=== PATIENT | female | born 1990 | race Caucasian/White ===

== ENCOUNTER → 2017-03-06 | Outpatient (CLI) | payer BC ==
[~2017-03-06] MED LIST: FAMOTIDINE 20 MG/2 ML VIAL IV ONE; Pre Op ABX Message 1 EACH MISC MISCELLANE ONE
[2017-03-06 10:40] LABS: CH 31.6; CHCM 33.5; HCT 35.9 % (34.0-46.0); HDW 2.55; MCH 31.6 pg (25.0-35.0); MCHC 33.4 g/dL (31.0-37.0); MCV 94.7 fL (80.0-100.0); Mean Platelet Volume 6.7; RBC 3.79 m/uL (3.80-5.40); RDW 13.5 % (11.5-15.5); WBC 13.4 k/uL (3.8-10.6)
== END | disposition home or self-care (01) ==
LOC: LABWHC1 09:04
PROVIDERS: ATTEND Obstetrics & Gynecology
DX: Z34.82 Encounter for supervision of other normal pregnancy, second trimester (principal); Z3A.00 Weeks of gestation of pregnancy not specified
CPT/HCPCS: 36415; 82950; 85027; 86850

== ENCOUNTER 2017-06-06 12:46 | Inpatient (IN) | payer BC, OTHER ==
[2017-06-06] MEDS ORDERED: METHYLERGONOVINE 0.2 MG/ML 1 ML AMP IM PRN (12:53)
[2017-06-06] MEDS ORDERED: LIDOCAINE 1% (PF) 10 MG/ML (30 ML SDV) SQ PRN (12:53)
[2017-06-06] MEDS ORDERED: CARBOPROST TROMETHAMINE 250 MCG/ML 1 ML AMP IM PRN (12:53)
[2017-06-06] MEDS ORDERED: TERBUTALINE 1 MG/ML VIAL SQ PRN (12:53)
[2017-06-06] MEDS ORDERED: OXYTOCIN 10 UNIT/ML 1 ML VIAL IM PRN (12:53)
[2017-06-06] MEDS ORDERED: OXYTOCIN 20 UNITS/1000 ML NS 1,000 ML IV SCH (13:00)
[2017-06-06] MEDS ORDERED: LACTATED RINGERS 1,000 ML IV SCH ×2 (13:00)
--- NOTE | 2017-06-06 13:00 | P.HPOB ---
History of Present Illness H&P Date: 06/06/17 Chief Complaint: Small for gestational age This patient is a pleasant 27-year-old 3 para 2 female estimated date of confinement 06/04/2017 estimated gestational age 40-2/7 weeks gestation was seen by Dr. Hernandez this morning and had a ultrasound for estimated weight amniotic fluid index due to postdates and estimated weight was 6 lbs. 7 oz. Although this is at the 19th percentile of Dr. Hernandez discussed the small size of this baby with the patient and she had a favorable cervix and she requested delivery at this time. She is care is per Dr. Hernandez and appears to be, complicated by late to seek care. She also is a tobacco user. She is 2 previous babies were small as well. Review of Systems Constitutional: Denies chills, Denies fever Ears, nose, mouth and throat: Denies headache, Denies sore throat Cardiovascular: Denies chest pain, Denies shortness of breath Respiratory: Denies cough Gastrointestinal: Reports heartburn Genitourinary: Reports Menstruation: Reports amenorrhea Musculoskeletal: Denies myalgias Integumentary: Denies pruritus, Denies rash Neurological: Denies numbness, Denies weakness Psychiatric: Denies anxiety, Denies depression Endocrine: Denies fatigue, Denies weight change Past Medical History Past Medical History: No Reported History History of Any Multi-Drug Resistant Organisms: None Reported Past Surgical History: No Surgical Hx Reported Additional Past Surgical History / Comment(s): Lipoma left shoulder blade Past Anesthesia/Blood Transfusion Reactions: No Reported Reaction Past Psychological History: Bipolar, Depression Smoking Status: Current every day smoker Past Alcohol Use History: None Reported Past Drug Use History: None Reported Medications and Allergies Home Medications Medication Instructions Recorded Confirmed Type Mxw-Tdqh-Lytlp Acid 1 tab PO DAILY 08/18/14 08/18/14 History [-U Capsule (formulary)] Allergies Allergy/AdvReac Type Severity Reaction Status Date / Time No Known Allergies Allergy Verified 08/18/14 08:08 Exam - Vital Signs Vital signs: Intake and Output 06/05/17 06/06/17 06/06/17 22:59 06:59 14:59 Other: Weight 66.224 kg Patient Weight 06/07/17 06:59 Weight 66.224 kg - OBG Physical Exam Abdomen: bowel sounds normal, no diffuse tenderness, no bruit present, no guarding noted, no hepatomegaly, no splenomegaly, no mass Vulva: both: normal Vagina: normal moisture, no discharge Cervix: Cervix is [address] Munoz. Uterus: enlarged (Fundal height in the office today was 37 cm.) Results blood work shows she is Rh- and she did receive RhoGAM, rubella immune , group B strep was negative, ultrasounds as above. Assessment and Plan (1) Third trimester Narrative/Plan: This is a pleasant 27-year-old 3 para 2 female 40-2/7 weeks gestation with a small for gestational age and favorable cervix with patient requesting induction of labor. Plan at this time is induction of labor and anticipate vaginal delivery. Status: Acute (2) Small for gestational age fetus Status: Acute (3) Rh negative status during Status: Acute
[2017-06-06 13:02] VITALS: BMI 29.5
[2017-06-06 13:09] LABS: Basophils % (A) 0 %; CH 30.1; CHCM 33.2; Eosinophils # (A) 0.2 k/uL (0-0.7); Eosinophils % (A) 1 %; HGB 12.4 gm/dL (11.4-16.0); Luc # (Auto) 0.22; Luc % (Auto) 1; Lymphocytes # (A) 1.9 k/uL (1.0-4.8); Lymphocytes % (A) 9 %; MCH 30.5 pg (25.0-35.0); MCHC 33.4 g/dL (31.0-37.0); MCV 91.2 fL (80.0-100.0); Mean Platelet Volume 7.4; Monocytes # (A) 0.5 k/uL (0-1.0); Monocytes % (A) 3 %; Neutrophils # (A) 17.6 k/uL (1.3-7.7); Neutrophils % (A) 86 %; RBC 4.06 m/uL (3.80-5.40); RDW 14.2 % (11.5-15.5); WBC 20.4 k/uL (3.8-10.6); WBC (Perox) 19.61
[2017-06-06] MEDS ORDERED: fentaNYL (PF) 50 MCG/ML 5 ML AMP ONE (13:49)
[2017-06-06] MEDS ORDERED: BUPIVACAINE (PF) 0.25% 30 ML VIAL ONE (13:49)
[2017-06-06] MEDS ORDERED: SODIUM CHLORIDE 0.9% 100 ML BAG ONE (13:49)
[2017-06-06] MEDS ORDERED: SIMETHICONE 80 MG CHEWABLE PO PRN (15:54)
[2017-06-06] MEDS ORDERED: ACETAMINOPHEN TAB 325 MG TAB PO PRN (15:54)
[2017-06-06] MEDS ORDERED: HYDROCORTISONE 2.5% RECTAL CREAM 30 GM TUBE RECTAL PRN (15:54)
[2017-06-06] MEDS ORDERED: LANOLIN CREAM 5 GM TUBE TOPICAL PRN (15:54)
[2017-06-06] MEDS ORDERED: BENZOCAINE/MENTHOL SPRAY 1 GM/SPRAY AEROSOL TOPICAL PRN (15:54)
[2017-06-06] MEDS ORDERED: WITCH HAZEL 1 EACH MED..PAD TOPICAL PRN (15:54)
[2017-06-06] MEDS ORDERED: diphenhydrAMINE 25 MG CAP PO PRN (15:54)
[2017-06-06] MEDS ORDERED: diphenhydrAMINE 50 MG/ML 1 ML VIAL IVP PRN (15:54)
[2017-06-06] MEDS ORDERED: IBUPROFEN 600 MG TAB PO PRN (15:54)
[2017-06-06] MEDS ORDERED: ZOLPIDEM 5 MG TAB PO PRN (15:54)
[2017-06-06] MEDS ORDERED: Acetaminophen-Codeine 300-30mg TAB PO PRN ×2 (15:54)
[2017-06-06] MEDS ORDERED: BISACODYL 10 MG SUPP RECTAL PRN (15:54)
[2017-06-06] MEDS ORDERED: Rhogam IMMUNE GLOBULIN 1,500 UNIT/1 ML IM ONE (15:54)
--- NOTE | 2017-06-06 16:53 | P.PROBDLV ---
Vaginal Delivery Note - . Vaginal Delivery Note: Normal spontaneous vaginal delivery of viable female infant Apgars 9 and 9 delivery time is 1529 hrs. Please see dictated H&P for intimate details of this patient's admission. Brief summary is a pleasant 27-year-old 3 para 2 female 40-2/7 weeks gestation admitted for induction secondary to small for gestational age favorable cervix. Patient is also brought to be in early labor. Patient is 5 cm dilators artificial rupture membranes for clear fluid patient does request an epidural at this time after the epidural is placed patient is then goes to complete quickly and pushes the head to the perineum. Posterior perineum is supported we have controlled delivery of infant's head over the intact perineum. Mouth and nares are bulb suctioned. There is no evidence of a nuchal cord. Gentle downward traction we have delivery the anterior and posterior shoulder and rest this infant's body. This is a vigorous viable female infant Apgars are 9 and 9 delivery time was 1529 hrs. After delivery of the infant the umbilical cords doubly clamped and cut. The trivascular. Cord blood is obtained for Rh status. Placenta spontaneously delivered intact estimated blood loss 100 mL no lacerations and no repair. Infant and mother stable delivery. Answered correct 3. There are no complications.
[2017-06-06] MEDS: SENNOSIDES-DOCUSATE SODIUM 1 EACH TAB PO SCH (20:09)
--- NOTE | 2017-06-07 07:03 | P.PNOBGVD ---
Subjective - Subjective Patient reports: Reports appetite normal, Reports voiding normally, Reports pain well controlled, Reports ambulating normally : doing well Objective - Latest Vital Signs Latest vital signs: Vital Signs Temp Pulse Resp BP 06/07/17 04:00 98.4 F 75 16 107/59 06/07/17 00:00 98.3 F 90 16 94/50 06/06/17 20:00 99.2 F 140 H 16 104/68 06/06/17 17:55 88 16 95/62 06/06/17 17:25 84 16 97/56 06/06/17 16:55 82 16 97/54 06/06/17 16:40 86 16 95/54 06/06/17 16:25 86 16 118/57 06/06/17 16:10 77 16 94/55 06/06/17 15:55 97.1 F L 94 16 101/65 06/06/17 12:57 97.4 F L 96 16 118/64 Intake and Output 06/06/17 06/06/17 06/07/17 14:59 22:59 06:59 Output Total 100 Balance -100 Output: Estimated Blood Loss 100 Other: # Voids 2 1 Weight 66.224 kg Patient Weight 06/07/17 06:59 Weight 66.224 kg - Exam Lungs: bilateral: normal Chest: Normal S1, Normal S2 Extremities: Present: normal Abdomen: Present: normal appearance, soft Uterus: Present: normal, firm - Labs Labs: Abnormal Lab Results - Last 24 Hours (Table) 06/06/17 Range/Units 12:55 WBC 20.4 H (3.8-10.6) k/uL Neutrophils # 17.6 H (1.3-7.7) k/uL Assessment and Plan (1) Third trimester Narrative/Plan: day #1. Patient is resting without complaints. Vital signs are stable and she is afebrile. White count yesterday admission was 20 and the repeat is pending so I'm waiting for these results. Patient does wish to go home today and she remains afebrile and CBC is okay the we'll discharge home later today. Current Visit: Yes Status: Acute Code(s): Z34.93 - ENCNTR FOR SUPRVSN OF NORMAL PREG, UNSP, THIRD TRIMESTER SNOMED Code(s): 26030686 (2) Small for gestational age fetus Current Visit: Yes Status: Acute Code(s): MBY5704 - SNOMED Code(s): 146057589 (3) Rh negative status during Current Visit: Yes Status: Acute Code(s): O09.899 - SUPERVISION OF OTHER HIGH RISK PREGNANCIES, UNSP TRIMESTER SNOMED Code(s): 192190108
--- NOTE | 2017-06-07 07:06 | P.DS ---
Providers Date of admission: 06/06/17 12:46 Expected date of discharge: 06/07/17 Attending physician: Derek Hernandez - Discharge Diagnosis(es) (1) Third trimester Current Visit: Yes Status: Acute (2) Small for gestational age fetus Current Visit: Yes Status: Acute (3) Rh negative status during Current Visit: Yes Status: Acute Hospital Course: Please see dictated H&P for intimate details of this patient's admission. Brief summary this is a pleasant 27-year-old 3 para 2 female 40-2/7 weeks gestation admitted to labor and delivery for induction of labor secondary to small for gestational age and favorable cervix. Patient undergoes uncomplicated induction of labor quickly goes on to have a vaginal delivery viable female infant. Please see dictated delivery note. day #1 patient is without complaints and wishes to go home. CBC was pending at this time of dictation but if it looked good she was felt be stable for discharge home follow up Dr. Hernandez in 6 weeks. Procedures: Induction of labor and normal vaginal delivery. Patient Condition at Discharge: Good Plan - Discharge Summary New Discharge Prescriptions: New Acetaminophen-Codeine 300-30mg [Tylenol w/codeine #3] 1 - 2 each PO Q4HR PRN #30 tab PRN Reason: Mild Pain exceeding Tylenol Ibuprofen [Motrin] 600 mg PO Q6HR PRN #40 tab PRN Reason: Mild Pain Or Fever >= 100.5 No Action [id number]-Garn-Dsgii Acid [-U Capsule (formulary)] 1 tab PO DAILY Discharge Medication List Ekr-[id number]-Cjnwt Acid [-U Capsule (formulary)] 1 tab PO DAILY 12/31 [History] Acetaminophen-Codeine 300-30mg [Tylenol w/codeine #3] 1 - 2 each PO Q4HR PRN # 30 tab 06/07/17 [Rx] Ibuprofen [Motrin] 600 mg PO Q6HR PRN #40 tab 06/07/17 [Rx] Follow up Appointment(s)/Referral(s): Derek Hernandez DO [Doctor of Osteopathic Medicine] - 6 Weeks Patient Instructions/Handouts: Vaginal Delivery (DC) Activity/Diet/Wound Care/Special Instructions: No intercourse or anything per vagina for 6 weeks. Please call if any fever, chills, excessive vaginal bleeding, and/or abdominal pain. Discharge Disposition: HOME SELF-CARE
[2017-06-07 08:04] LABS: Basophils % (A) 0 %; CH 29.8; CHCM 32.2; Eosinophils # (A) 0.1 k/uL (0-0.7); Eosinophils % (A) 1 %; HCT 32.6 % (34.0-46.0); HDW 2.75; HGB 10.5 gm/dL (11.4-16.0); Luc % (Auto) 1; Lymphocytes # (A) 2.8 k/uL (1.0-4.8); Lymphocytes % (A) 14 %; MCH 29.9 pg (25.0-35.0); MCHC 32.2 g/dL (31.0-37.0); Mean Platelet Volume 7.8; Monocytes # (A) 0.4 k/uL (0-1.0); Monocytes % (A) 2 %; Neutrophils # (A) 16.7 k/uL (1.3-7.7); Neutrophils % (A) 82 %; RBC 3.51 m/uL (3.80-5.40); RDW 14.3 % (11.5-15.5); WBC 20.2 k/uL (3.8-10.6); WBC (Perox) 20.76
[2017-06-07] MEDS: SENNOSIDES-DOCUSATE SODIUM 1 EACH TAB PO SCH (10:23)
[2017-06-07 10:25] VITALS: RESP 18
[2017-06-07 16:55] VITALS: BP 106/55; PULSE 80; TEMP 98
== END 2017-06-07 18:14 | disposition home or self-care (01) | DRG 775 ==
LOC: 4FBP 12:46
PROVIDERS: ADMIT Obstetrics & Gynecology; ATTEND Obstetrics & Gynecology
PROC: 10E0XZZ Delivery of Products of Conception, External Approach (ICD-10-PCS; principal; 2017-06-06)
PROC: 10907ZC Drainage of Amniotic Fluid, Therapeutic from Products of Conception, Via Natural or Artificial Opening (ICD-10-PCS; 2017-06-06)
PROC: 3E0S3NZ Introduction of Analgesics, Hypnotics, Sedatives into Epidural Space, Percutaneous Approach (ICD-10-PCS; 2017-06-06)
PROC: 3E0234Z Introduction of Serum, Toxoid and Vaccine into Muscle, Percutaneous Approach (ICD-10-PCS; 2017-06-07)
DX: O36.5930 Maternal care for other known or suspected poor fetal growth, third trimester, not applicable or unspecified (principal); O99.344 Other mental disorders complicating childbirth; F32.9 Major depressive disorder, single episode, unspecified; F17.200 Nicotine dependence, unspecified, uncomplicated; O48.0 Post-term pregnancy; O26.893 Other specified pregnancy related conditions, third trimester; O99.334 Smoking (tobacco) complicating childbirth; Z3A.40 40 weeks gestation of pregnancy; Z37.0 Single live birth; Z67.41 Type O blood, Rh negative
CPT/HCPCS: 85025

== ENCOUNTER → 2017-07-30 | Outpatient (CLI) | payer BC, OTHER ==
[2017-07-30 10:36] LABS: Basophils % (A) 0 %; CH 29.1; CHCM 32.6; Eosinophils # (A) 0.3 k/uL (0-0.7); Eosinophils % (A) 4 %; HCT 41.9 % (34.0-46.0); HGB 13.4 gm/dL (11.4-16.0); Luc # (Auto) 0.14; Luc % (Auto) 2; Lymphocytes % (A) 30 %; MCH 28.7 pg (25.0-35.0); MCHC 31.9 g/dL (31.0-37.0); MCV 89.9 fL (80.0-100.0); Mean Platelet Volume 8.1; Monocytes # (A) 0.3 k/uL (0-1.0); Monocytes % (A) 4 %; Neutrophils # (A) 4.1 k/uL (1.3-7.7); Neutrophils % (A) 60 %; RBC 4.66 m/uL (3.80-5.40); RDW 14.8 % (11.5-15.5); WBC 6.8 k/uL (3.8-10.6); WBC (Perox) 6.55
== END | disposition home or self-care (01) ==
LOC: LABPAT 10:08
PROVIDERS: ATTEND Obstetrics & Gynecology
DX: Z01.812 Encounter for preprocedural laboratory examination (principal)
CPT/HCPCS: 36415; 85025

== ENCOUNTER 2017-08-08 11:27 | Day surgery (SDC) | payer BC, OTHER ==
[~2017-08-08 11:27] MED LIST changes: -FAMOTIDINE 20 MG/2 ML VIAL IV ONE
[2017-08-08] MEDS ORDERED: LIDOCAINE 1% 20 ML VIAL (10MG/ML) FOR IV START INTRADERMA PRN (11:39)
[2017-08-08] MEDS ORDERED: SCOPOLAMINE 1.5MG/72HR PATCH TRANSDERM ONE (11:39)
[2017-08-08] MEDS ORDERED: HYDROmorphone 1 MG/ML 1 ML SYRINGE IVP PRN (11:39)
[2017-08-08] MEDS ORDERED: DEXAMETHASONE SOD PHOSPHATE 10 MG/ML 1 ML VIAL IV ONE (11:39)
[2017-08-08] MEDS ORDERED: ONDANSETRON 4 MG/2 ML VIAL IVP ONE (11:39)
[2017-08-08] MEDS ORDERED: LACTATED RINGERS 1,000 ML IV SCH (11:39)
--- NOTE | 2017-08-08 12:11 | P.HPOB ---
History of Present Illness H&P Date: 08/08/17 Chief Complaint: family planning Ramon Lubin is a 27 year-old young lady who has completed her family planning and desires permanent sterilization. is aware this is not designed to be reversed. all questions answered. r/b/a/ reviewed in detail and all questions answered prior to proceeding to O.R.\ Physical exam: heart reg, lungs CTAB, Abd soft, nt, +BS, extremeties without pain, pelvic exam normal. asses: family planning. Plan: lap tuba with fischie clips. Past Medical History Past Medical History: No Reported History Additional Past Medical History / Comment(s): post since june 06 (vag delivery) History of Any Multi-Drug Resistant Organisms: None Reported Past Surgical History: No Surgical Hx Reported Additional Past Surgical History / Comment(s): Lipoma left shoulder blade Past Anesthesia/Blood Transfusion Reactions: No Reported Reaction Past Psychological History: Bipolar, Depression Smoking Status: Current every day smoker Past Alcohol Use History: None Reported Past Drug Use History: None Reported - Past Family History Mother Family Medical History: Diabetes Mellitus Medications and Allergies Allergies Allergy/AdvReac Type Severity Reaction Status Date / Time No Known Allergies Allergy Verified 08/18/14 08:08 Exam Osteopathic Statement: *. No significant issues noted on an osteopathic structural exam other than those noted in the History and Physical/Consult. - Vital Signs Vital signs: Vital Signs Temp Pulse Resp BP Pulse Ox 08/08/17 11:45 98.3 F 53 L 18 117/68 99 Intake and Output 08/07/17 08/08/17 08/08/17 22:59 06:59 14:59 Other: Weight 56.699 kg Patient Weight 08/09/17 06:59 Weight 56.699 kg
[2017-08-08] MEDS ORDERED: PROPOFOL 10 MG/ML 20 ML VIAL IV ONE (12:20)
[2017-08-08] MEDS ORDERED: GLYCOPYRROLATE 0.2 MG/ML 2 ML VIAL ONE (12:20)
[2017-08-08] MEDS ORDERED: SUCCINYLCHOLINE CHLORIDE 100 MG/5 ML SYR IV ONE (12:20)
[2017-08-08] MEDS ORDERED: fentaNYL (PF) 50 MCG/ML 2 ML AMP ONE (12:20)
[2017-08-08] MEDS ORDERED: NEOSTIGMINE 1 MG/ML 10 ML VIAL ONE (12:20)
[2017-08-08] MEDS ORDERED: MIDAZOLAM 2 MG/2 ML VIAL ONE (12:20)
[2017-08-08] MEDS ORDERED: LIDOCAINE 1% INJ 10MG/ML (20 ML MDV) ONE (12:20)
[2017-08-08] MEDS ORDERED: ROCURONIUM BROMIDE 10 MG/ML 10 ML VIAL IV ONE (12:20)
[2017-08-08] MEDS ORDERED: BUPIVACAINE (PF) 0.25% 30 ML VIAL SQ ONE (12:35)
--- NOTE | 2017-08-08 12:55 | P.OP ---
Date of Procedure: 08/08/17 Preoperative Diagnosis: Family planning Postoperative Diagnosis: same Procedure(s) Performed: Laparoscopic tubal occlusion with Filshie clips Anesthesia: EDUAR Surgeon: Derek Hernandez Estimated Blood Loss (ml): 3 Pathology: none sent Condition: stable Disposition: same day Operative Findings: Normal female pelvic anatomy Description of Procedure: Patient was taken to the operating suite where a general anesthetic was found be adequate. She was prepped and draped in the normal sterile fashion and placed in the dorsal lithotomy position. Initially a speculum was inserted into the vagina the anterior lip of the cervix identified and grasped with Allis clamp and the uterus was then sounded to 8 cm. A kroner manipulator was inserted without difficulty and red rubber cath was used to drain the bladder of urine. Catheter Allis clamp and speculum were then removed and gloves were changed and attention was turned to abdominal portion procedure where 3 mL of quarter percent Marcaine was injected periumbilically. Through this injected anesthetic a 5 mm skin incision was made and through this incision under direct visualization with an optical trocar and sleeve the camera was inserted. Once peritoneal placement was assured gas was allowed to fill the abdomen and patient was placed in steep Trendelenburg position. Second 8 mm skin incision was then made 3 cm above the pubic synthesis in the midline and through this incision port and sleeve were inserted. Observations pelvis were then noted and uterus was elevated. It is noted she has retroverted uterus. First the right fallopian tube than left fallopian tube were identified and a Filshie clip was applied 2-3 cm from uterine cornu. Occlusion was verified. With no bleeding noted from the mesosalpinx instruments were removed and gas was allowed to expel from the abdomen. 5 deep breaths were provided during this process. Ports were then removed and incisions closed subcuticularly with 4-0 Vicryl. The remaining 7 mL of quarter percent Marcaine was then injected around these incisions and instruments removed from the vagina. Sponge, lap, needle counts were all correct 2. Patient was taken to the recovery room stable and satisfactory condition. Plan - Discharge Summary Follow up Appointment(s)/Referral(s): Derek Hernandez DO [Doctor of Osteopathic Medicine] - 2 Weeks Activity/Diet/Wound Care/Special Instructions: No heavy lifting, limit stairs and driving and pelvic rest. If any high temperatures, heavy bleeding, or severe pain call my office Discharge Disposition: HOME SELF-CARE
[2017-08-08] MEDS ORDERED: KETOROLAC 30 MG/ML 1 ML VIAL IVP ONE (13:13)
[2017-08-08 13:17] VITALS: TEMP 97.8
[2017-08-08 13:24] VITALS: RESP 16
[2017-08-08 14:28] VITALS: PULSE 50
[2017-08-08 14:55] VITALS: BP 124/82
== END 2017-08-08 15:08 | disposition home or self-care (01) ==
LOC: OR 11:27
PROVIDERS: ATTEND Obstetrics & Gynecology
DX: Z30.2 Encounter for sterilization (principal); N85.4 Malposition of uterus; F31.9 Bipolar disorder, unspecified; F32.9 Major depressive disorder, single episode, unspecified; F17.200 Nicotine dependence, unspecified, uncomplicated
CPT/HCPCS: 81025; 58671; J2250; J1100; J2710; J2405; J2001; J3010; J1885; J0330; J2704